=== PATIENT | male | born 1975 | race Caucasian/White ===

== ENCOUNTER 2018-11-09 12:14 | Emergency (ER) | payer SELFPAY ==
--- NOTE | 2018-11-09 12:36 | UC ---
Hand/Wrist HPI - HPI Summary HPI Summary: This is a 42-year-old male who has a right hand injury which he injured on Tuesday approximate 2 days ago. He refuses to tell me what he did to injure it however he requests an x-ray of the right hand. - History Of Current Complaint Stated Complaint: HAND INJURY Time Seen by Provider: 11/09/18 12:36 Hx Obtained From: Patient ?: No Onset/Duration: Sudden Onset Severity Initially: Moderate Severity Currently: Moderate Character Of Pain: Aching Aggravating Factor(s): Movement Alleviating Factor(s): Rest, Elevation Associated Signs And Symptoms: Positive: Swelling - Allergies/Home Medications Allergies/Adverse Reactions: Allergies Allergy/AdvReac Type Severity Reaction Status Date / Time No Known Allergies Allergy Verified 11/09/18 12:37 Home Medications: Home Medications NK [No Home Medications Reported] 11/09/18 [History Confirmed 11/09/18] PMH/Surg Hx/FS Hx/Imm Hx Previously Healthy: Yes - Family History Known Family History: Positive: Non-Contributory Review of Systems All Other Systems Reviewed And Are Negative: Yes Motor: Positive: Decreased ROM - Decreased range of motion of his fourth and fifth fingers because of pain in his dorsum of his right hand. Neurovascular: Positive: Negative Musculoskeletal: Positive: Other: - Into the dorsum of his right hand. Neurological: Positive: Negative Is Patient Immunocompromised?: No Physical Exam Appearance: Well-Appearing, No Pain Distress, Well-Nourished Vital Signs Reviewed: Yes Musculoskeletal: Positive: Other: - Swelling over the dorsum of his right hand with some weakness in his fourth and fifth finger because of pain when he does flexion and extension against resistance. He does have full range of motion of his fingers however. He also has pain over the area of swelling. Neurological: Positive: Alert Hand/Wrist Course/Dx - Course Course Of Treatment: X-ray right hand:REPORT AND IMPRESSION: #. Mildly comminuted fracture involving the proximal metaphysis of the fourth metacarpal with approximate 1 bone width dorsal displacement and foreshortening. Intra- articular extension of the fracture is not excluded. Overlying soft tissue swelling. Negative for subcutaneous emphysema. #. No additional fracture or articular malalignment. I spoke with the personnel at Dr. Haney's office and they will see him immediately from here. I was going to place an ulnar gutter splint on the patient however he then stated to me that all he needed was a splint and no further treatment. I reiterated to him the importance of follow-up with an orthopedist because the type of fracture he has may need surgery. After a fairly long discussion with him he did agree that he would go wherever he needs to today for follow-up. Because this fracture happened on Tuesday of this week I wanted him to get seen by the orthopedist as soon as possible and did not place a splint on him because I'm afraid that he will not follow-up with the orthopedist if I put the splint on. - Differential Dx/Diagnosis Provider Diagnosis: Fractured hand Discharge - Sign-Out/Discharge Documenting (check all that apply): Patient Departure All imaging exams completed and their final reports reviewed: Yes - Discharge Plan Condition: Fair Disposition: HOME Patient Education Materials: Hand Fracture (ED) Referrals: No Primary Care Phys,NOPCP [Primary Care Provider] - Cadence Haney MD [Medical Doctor] - Additional Instructions: Keep elevated as much as possible. You are to go directly to Dr. Haney's office from here for further care. - Billing Disposition and Condition Condition: FAIR Disposition: Home
[2018-11-09 12:37] VITALS: BP 143/92
== END 2018-11-09 14:00 | disposition home or self-care (01) ==
LOC: UCEAST 12:14
DX: S62.394A Other fracture of fourth metacarpal bone, right hand, initial encounter for closed fracture (principal); X58.XXXA Exposure to other specified factors, initial encounter; Y92.9 Unspecified place or not applicable
CPT/HCPCS: 99201; G0463

== ENCOUNTER 2018-11-14 11:53 | Day surgery (SDC) | payer SELFPAY ==
[~2018-11-14 11:53] MED LIST: Buffered Lidocaine 1% SYRIN* 1 ML/SYRINGE INTRADERM ONE; Lactated Ringers 1000 ML Bag* 1,000 ML IV SCH
[2018-11-14] MEDS ORDERED: ceFAZolin 2 GM PREMIX in ORs 2 GM/50 ML BAG IVPB ONE (12:03)
[2018-11-14] MEDS ORDERED: Naloxone* 0.4 MG/ML 1 ML VIAL IV PRN (13:39)
[2018-11-14] MEDS ORDERED: Ketorolac INJ* 30 MG/ML 1 ML VIAL IV PRN (13:39)
[2018-11-14] MEDS ORDERED: Ondansetron INJ* 2 MG/ML VIAL IV PRN (13:39)
[2018-11-14] MEDS ORDERED: fentaNYL* 50 MCG/ML 2 ML VIAL (100 MCG VIAL) IV PRN (13:39)
[2018-11-14] MEDS ORDERED: Lidocaine 1% INJ* 10 MG/ML 30 ML SDV ONE (13:42)
[2018-11-14] MEDS ORDERED: Sodium Citrate/Citric Acid* 15 ML UDC ONE (13:49)
[2018-11-14] MEDS ORDERED: Propofol* 10 MG/ML 20 ML BTL ONE (14:48)
[2018-11-14] MEDS ORDERED: Lidocaine 2% PF * 5 ML VIAL ONE (14:48)
[2018-11-14] MEDS ORDERED: Ketorolac INJ* 30 MG/ML 1 ML VIAL ONE (15:10)
[2018-11-14] MEDS ORDERED: Acetaminophen IV 1GM/100ML * 1,000 MG/100 ML VIAL IVPB ONE (15:19)
[2018-11-14] MEDS ORDERED: oxyCODONE ORAL.SOLN* 5 MG/5 ML UDC PO ONE (15:20)
[2018-11-14] MEDS ORDERED: Acetaminophen IV 1GM/100ML * 100 ML ONE (15:20)
[2018-11-14] MEDS ORDERED: oxyCODONE ORAL.SOLN* 5 MG/5 ML UDC ONE (15:40)
[2018-11-14 15:50] VITALS: BP 131/78
--- NOTE | 2018-11-14 20:56 | OP ---
DATE OF OPERATION: 11/14/18 [facility] DATE OF : 77 SURGEON: Cadence Haney MD. RESIDENTIAL [employer] SEALING TECHNICIAN: LUCY Murry, and LUCY Mcgregor. ANESTHESIA: General. PRE-OP DIAGNOSIS: Fracture dislocation of the right fourth metacarpal at the carpometacarpal joint. POST-OP DIAGNOSIS: Fracture of the right fourth metacarpal and dislocation of the right fifth metacarpal at the carpometacarpal joint. OPERATIVE PROCEDURE: Closed reduction and pinning of right fourth and fifth metacarpals. ESTIMATED BLOOD LOSS: Zero. INDICATIONS: Titi is a 42-year-old male who injured his right hand. He has on x-ray an obvious fracture at the base of the fourth metacarpal. C-arm views revealed also that he got a dislocated fifth metacarpal. He presents for closed reduction and pinning of his right hand. DESCRIPTION OF PROCEDURE: The patient was brought to the operating room, was given a general anesthetic, and placed in the supine position on the operating table with a tourniquet around his right upper arm. Tourniquet was not used during the procedure. Skin of his right hand and forearm was prepped and draped in the usual sterile fashion. The fractures were reduced with traction and manipulation, and postreduction x-ray with the C-arm showed that the fifth CMC joint was reduced. It was secured with two 0.045 inch K-wires driven through the proximal aspect of the metacarpal and into the carpus. The fourth metacarpal was then reduced with traction and the fracture fragments secured with two 0.045 inch K-wires which were driven through the distal fragment of the fracture into the proximal fragment and then across into the carpus. The position of the hardware and fracture fragments was checked on the C-arm in the AP and lateral views and found to be satisfactory. The pins were bent and cut, dressed with Xeroform, 4x4, Webril, and a volar splint. The patient tolerated the procedure well and was brought to the recovery room in good condition. [id number]/CPS #: [id number]
== END 2018-11-14 16:03 | disposition home or self-care (01) ==
LOC: OREAST 11:53
PROVIDERS: ATTEND Orthopaedic Surgery
DX: S62.314A Displaced fracture of base of fourth metacarpal bone, right hand, initial encounter for closed fracture (principal); S63.054A Dislocation of other carpometacarpal joint of right hand, initial encounter; X58.XXXA Exposure to other specified factors, initial encounter; Y92.9 Unspecified place or not applicable; Z87.891 Personal history of nicotine dependence
CPT/HCPCS: 76000; A9270-GY; C1776; J0690; J1885; J2704